=== PATIENT | female | born 1970 | race Caucasian/White ===

== ENCOUNTER 2023-08-05 12:57 | Outpatient (CLI) | payer OTHER, SELFPAY ==
--- NOTE | 2023-08-05 13:00 | CRLHL7_ITS ---
For Patients: As a result of the Century Cures Act, medical imaging exams and procedure reports are released immediately into your electronic medical record. You may view this report before your referring provider. If you have questions, please contact your health care provider. INDICATION: Recurrent sinusitis. TECHNIQUE: Thin-slice noncontrast CT of the paranasal sinuses with bone and soft tissue reconstruction. COMPARISON: None available. FINDINGS: Frontal sinuses are clear. Mild mucosal thickening within the patent frontal recesses. The agger nasi cells are clear. Small dependent fluid levels within the bilateral maxillary sinuses. Mild mucosal thickening within the anterior and posterior ethmoid air cells. Ostiomeatal complexes are clear. The sphenoid sinuses and ostia are clear. Leftward deviation of the nasal septum with a 3 mm septal spur narrowing the adjacent airway. The nasopharynx and visualized oropharynx are unremarkable in appearance.No bony or soft tissue abnormality is seen. IMPRESSION: 1. Mucosal thickening throughout the ethmoid sinuses and small fluid levels in the dependent maxillary sinuses, suspicious for acute sinusitis. S 2. Leftward deviation of the nasal septum with a 3 mm septal spur narrowing the adjacent airway. Please note that all CT scans at this facility use dose modulation, iterative reconstruction, and/or weight-based dosing when appropriate to reduce radiation dose to as low as reasonably achievable. Dictated by Oj Ames MD @ 08/05/2023 4:08:41 PM (Electronically Signed)
== END 2023-08-05 12:58 | disposition home or self-care (01) ==
LOC: CT 12:59
PROVIDERS: PCP Physician Assistant; Visit Provider Otolaryngology
DX: J32.9 Chronic sinusitis, unspecified (principal); J32.0 Chronic maxillary sinusitis; J34.2 Deviated nasal septum
CPT/HCPCS: 70486

== ENCOUNTER 2023-09-03 07:10 | Day surgery (SDC) | payer OTHER, SELFPAY ==
[2023-09-03] VITALS (14 sets, daily range): BP systolic 107–145; BP diastolic 77–102; PULSE 42–58; RESP 12–18; TEMP 36.1–36.6; O2SAT 92–99; BMI 31.1
[2023-09-03] MEDS: LACTATED RINGERS 1000 ML 1,000 ML 100 ML IV (07:45)
[2023-09-03] MEDS: SODIUM CHLORIDE 0.9 % (FLUSH) 10 ML SYRINGE IVF (07:45)
[2023-09-03] MEDS: OXYMETAZOLINE 0.05% NASAL SPRAY 2 SPRAY NOSTRIL-B (07:55)
--- NOTE | 2023-09-03 08:25 | W.ANESCHARGE ---
Anesthesia Charges Start Date/Time Anesthesia Start Date: 09/03/23 Anesthesia Start Time: 09:02 Stop Date/Time Anesthesia Stop Date: 09/03/23 Anesthesia Stop Time: 09:38
[2023-09-03] MEDS: COCAINE HCL 4 % 4 ML SOLUTION NOSTRIL-B (09:12)
[2023-09-03] MEDS: AYR SALINE NASAL GEL 1 APPLIC NOSTRIL-B (09:23)
[2023-09-03] MEDS: BUPIVACAINE 0.5%/EPINEPHRINE 0.9 MG (30.9 ML) INJECTION (09:30)
[2023-09-03] MEDS: MUPIROCIN 1 GM PACKET 1 APPLIC TOPICAL (09:30)
--- NOTE | 2023-09-03 09:51 | W.ANESCHARGE ---
Anesthesia Charges Start Date/Time Anesthesia Start Date: 09/03/23 Anesthesia Start Time: 09:02 Stop Date/Time Anesthesia Stop Date: 09/03/23 Anesthesia Stop Time: 09:38
[2023-09-03] MEDS: fentaNYL 100 MCG/2 ML inj 50 MCG IVP (10:07)
[2023-09-03] MEDS: LACTATED RINGERS 1000 ML 1,000 ML 35 ML IV (10:26)
--- NOTE | 2023-09-03 10:28 | SUR.PHASEI ---
PATIENT MET DISCHARGE CRITERIA PER ANESTHESIA
[2023-09-03] MEDS: ACETAMINOPHEN 325 MG TABLET PO (11:24)
[2023-09-03] MEDS: IBUPROFEN 200 MG TABLET PO (11:24)
--- NOTE | 2023-09-03 11:58 | W.PM.ENTPROC ---
Procedure Note Date of procedure: 09/03/23 Procedure: Preoperative diagnosis nasal obstruction nasal headache deviated septum inferior turbinate hypertrophy right middle turbinate hypertrophy Postoperative diagnosis same Procedure nasal septoplasty, submucous partial resection inferior turbinates bilateral, submucous partial resection right middle turbinate Under general endotracheal anesthesia patient was prepped draped usual fashion the nose injected and decongested. A right hemitransfixion incision was made left anterior and posterior tunnels were created. A vertical incision was made the cartilage and a right posterior tunnel created. The posterior deflected portions of septal bone and cartilage were resected a large piece of bone and 1 piece of cartilage were trimmed and returned to intraseptal space. The hemitransfixion was closed with 2 4-0 chromic sutures. A stab incision was made in the anterior head of the right inferior turbinate a tunnel created with a [place] dissector. Conservative anterior submucous resection was performed and the Coblation was used to cauterize intramurally along the inferior 10%. This was repeated on the left side in identical fashion. The right middle turbinate was injected and incised along its inferolateral aspect. The navin bone was then infractured with a [place] dissector and the turbinate crushed with the Philip forceps. Silastic stents were secured with 3-0 nylon. Merocel pack was trimmed lengthwise coated in Bactroban and placed beneath the middle meatus on each side. The patient procedure well was taken recovery in satisfactory condition. Blood loss during procedure less than 25 mL. Surgeon: Michi Ellison MD
== END 2023-09-03 12:00 | disposition home or self-care (01) ==
LOC: OR 07:11
PROVIDERS: PCP Physician Assistant; Visit Provider Otolaryngology
PROC: (CPT 30520; principal; 2023-09-03 08:30)
DX: J34.2 Deviated nasal septum (principal); J34.3 Hypertrophy of nasal turbinates; R51.9 Headache, unspecified
CPT/HCPCS: 30520; 30140; 30999; 00160; 00170; A9270; J0330; J1100; J2250; J2405; J2704; J3010; J7120